=== PATIENT | male | born 1960 | race Caucasian/White ===

== ENCOUNTER 2016-07-27 18:29 | Inpatient (IN) | payer MEDICARE, OTHER ==
[~2016-07-27] VITALS: Ht 182.9 cm; Wt 105.0 kg
[~2016-07-27 18:29] MED LIST: ACET-2247 PO; BISA5TAB12 PO; DIAZ2 PO; DIVA250T45 PO; FENT1SPR SL; FLUT1AER IH; FOLI1TAB15 PO; HALO1 PO; INSU100V12 SQ; LISI-661 PO; METF500T4 PO; METH10 PO; MS100DRIP PO; MULT-29 PO; ONDA4 PO; PANT40TA PO; QUET200T PO; THIA100 PO; TRAZ150 PO; [UNRECOGNIZED DRUG - CODE] PO
[2016-07-27 19:05] LABS: BASOPHILS # (AUTO) 0.04 K/uL (0.00-0.20); BASOPHILS % (AUTO) 0.3 % (0.0-2.0); EOSINOPHILS # (AUTO) 0.08 K/uL (0.00-0.70); EOSINOPHILS % (AUTO) 0.75 % (1.0-6.0); HEMATOCRIT 44.3 % (41-53); HEMOGLOBIN 14.7 g/dL (13.5-17.5); LYMPHOCYTES # (AUTO) 4.1 K/uL (1.0-4.8); LYMPHOCYTES % (AUTO) 37.9 % (22.0-44.0); MEAN CORPUSCULAR HEMOGLOBIN 29.8 pg (26.0-34.0); MEAN CORPUSCULAR HGB CONC 33.3 G/dL (31.0-37.0); MEAN CORPUSCULAR VOLUME 89 fL (80-100); MONOCYTES # (AUTO) 0.5 K/uL (0.1-1.0); MONOCYTES % (AUTO) 4.4 % (2.0-9.0); NEUTROPHILS # (AUTO) 6.1 K/uL (1.8-7.7); NEUTROPHILS % (AUTO) 56.7 % (40.0-70.0); PLATELET COUNT (AUTO) 344 K/uL (150-450); RED BLOOD CELL COUNT(AUTO) 4.95 MIL/uL (4.50-5.90); RED CELL DISTRIBUTION WIDTH 14.3 % (11.5-14.5); WHITE BLOOD COUNT (AUTO) 10.8 K/uL (4.5-11.0)
[2016-07-27 19:07] LABS: ANION GAP 9 mmol/L (8-16); CALCIUM, TOTAL 8.6 mg/dL (8.8-10.5); CARBON DIOXIDE 27 mmol/L (22-29); CHLORIDE 104 mmol/L (98-107); GLOMERULAR FILTR. RATE CALC > 60 mL/min (>60); POTASSIUM 4.3 mmol/L (3.5-5.1); SODIUM SERUM 140 mmol/L (136-145); UREA NITROGEN, BLOOD 12 mg/dL (7-18)
[2016-07-27 19:13] LABS: ACETAMINOPHEN 41 mcg/mL (10-30); ALANINE AMINOTRANSFERASE 34 U/L (12-78); ALBUMIN 4.2 g/dL (3.4-5.0); ASPARTATE AMINOTRANSFERASE 36 U/L (15-37); BILIRUBIN,TOTAL 0.4 mg/dL (0.1-1.0); TOTAL PROTEIN, SERUM 7.3 g/dL (6.4-8.2)
[2016-07-27 19:17] LABS: GLUCOSE,POINT OF CARE 211 MG/DL (70-110)
[2016-07-27] MEDS ORDERED: MAGNESIUM SULFATE 2 GM, MVI, ADULT NO.1 WITH VIT K 10 ML, THIAMINE HCL 100 MG, FOLIC AC... IV ONE ×5 (19:30)
[2016-07-27] MEDS ORDERED: METOCLOPRAMIDE HCL 5 MG/ML 2 ML VIAL IVP ONE (19:30)
[2016-07-27 20:15] LABS: SALICYLATE < 2.8 mg/dL (2.8-20.0)
[2016-07-27] MEDS ORDERED: MAGNESIUM HYDROXIDE SUSPENSION 30 ML UDCUP PO PRN (21:30)
[2016-07-27] MEDS ORDERED: ACETAMINOPHEN 325 MG TABLET PO PRN (21:30)
[2016-07-27] MEDS ORDERED: SODIUM CHLORIDE 0.9% 1,000 ML IV ONE (21:45)
[2016-07-27] MEDS ORDERED: DEXTROSE 50%-WATER 25 GM/50 ML SYRINGE IVP PRN (21:45)
[2016-07-27] MEDS ORDERED: POTASSIUM CHL 10 MEQ/WATER 50 ML IV PRN (21:45)
[2016-07-27] MEDS ORDERED: POTASSIUM CHLORIDE 20 MEQ ER TABLET PO PRN (21:45)
[2016-07-27] MEDS ORDERED: MAGNESIUM SULFATE 4 GM/WATER 100 ML IV PRN (21:45)
[2016-07-27] MEDS ORDERED: MAGNESIUM SULFATE 2 GM in DEXTROSE 5%-WATER 50 ML IV PRN (21:45)
[2016-07-27] MEDS ORDERED: MAGNESIUM OXIDE 400 MG TABLET PO PRN (21:45)
[2016-07-27 23:30] VITALS: BP 140/79
[2016-07-27] MEDS: MORPHINE SULFATE 2 MG/ML SYRINGE IVP PRN (23:43)
[2016-07-28] MEDS: HEPARIN SODIUM,PORCINE 5,000 UNITS/ML VIAL SQ SCH ×4 (00:08→23:04)
[2016-07-28] MEDS ORDERED: PNEUMOCOCCAL VACCINE POLYVALENT 0.5 ML VIAL [PPSV23] IM ONE (02:00)
[2016-07-28] MEDS: LORazepam 2 MG/ML VIAL IVP PRN ×2 (02:48→17:22)
[2016-07-28 04:00] VITALS: BP 149/92
[2016-07-28 06:36] LABS: GLUCOSE COMMENT 1 Received Meds; GLUCOSE,POINT OF CARE 200 MG/DL (70-110)
[2016-07-28] MEDS: INSULIN ASPART 100 UNITS/ML SQ PRN ×4 (06:36→20:03)
[2016-07-28 06:48] LABS: GLUCOSE COMMENT 1 Received Meds; GLUCOSE,POINT OF CARE 205 MG/DL (70-110)
[2016-07-28 07:25] LABS: BASOPHILS % (AUTO) 0.4 % (0.0-2.0); EOSINOPHILS % (AUTO) 0.8 % (1.0-6.0); HEMATOCRIT 44.2 % (41-53); HEMOGLOBIN 14.3 g/dL (13.5-17.5); LYMPHOCYTES # (AUTO) 3.1 K/uL (1.0-4.8); LYMPHOCYTES % (AUTO) 28.5 % (22.0-44.0); MEAN CORPUSCULAR HGB CONC 32.3 G/dL (31.0-37.0); MEAN CORPUSCULAR VOLUME 90 fL (80-100); MONOCYTES # (AUTO) 0.4 K/uL (0.1-1.0); NEUTROPHILS # (AUTO) 7.3 K/uL (1.8-7.7); NEUTROPHILS % (AUTO) 66.3 % (40.0-70.0); PLATELET COUNT (AUTO) 372 K/uL (150-450); RED BLOOD CELL COUNT(AUTO) 4.93 MIL/uL (4.50-5.90); RED CELL DISTRIBUTION WIDTH 14.7 % (11.5-14.5)
[2016-07-28 07:32] VITALS: BP 163/99
[2016-07-28] MEDS: ONDANSETRON HCL 4 MG/2 ML VIAL IVP PRN ×2 (07:34→14:16)
[2016-07-28] MEDS: MORPHINE SULFATE 2 MG/ML SYRINGE IVP PRN ×2 (07:47→14:11)
[2016-07-28 08:00] LABS: ALANINE AMINOTRANSFERASE 34 U/L (12-78); ALBUMIN 4.1 g/dL (3.4-5.0); ANION GAP 16 mmol/L (8-16); ASPARTATE AMINOTRANSFERASE 27 U/L (15-37); BILIRUBIN,TOTAL 0.5 mg/dL (0.1-1.0); CALCIUM, TOTAL 8.8 mg/dL (8.8-10.5); CARBON DIOXIDE 22 mmol/L (22-29); CHLORIDE 102 mmol/L (98-107); CREATININE 1.17 mg/dL (0.60-1.30); GLOMERULAR FILTR. RATE CALC > 60 mL/min (>60); POTASSIUM 3.9 mmol/L (3.5-5.1); SODIUM SERUM 140 mmol/L (136-145); TOTAL PROTEIN, SERUM 7.3 g/dL (6.4-8.2); UREA NITROGEN, BLOOD 17 mg/dL (7-18)
[2016-07-28] MEDS: PANTOPRAZOLE SODIUM 40 MG DR TABLET PO SCH (08:14)
[2016-07-28] MEDS: DOCUSATE SODIUM 100 MG CAPSULE PO SCH ×2 (08:14→19:56)
[2016-07-28 08:20] LABS: ACETAMINOPHEN 2 mcg/mL (10-30)
[2016-07-28] MEDS: LISINOPRIL 10 MG TABLET PO SCH (09:23)
[2016-07-28] MEDS: NICOTINE 21 MG/24 HOUR PATCH TD SCH (10:23)
[2016-07-28 12:07] LABS: GLUCOSE COMMENT 1 Received Meds; GLUCOSE,POINT OF CARE 190 MG/DL (70-110)
[2016-07-28 13:00] VITALS: BP 158/96
[2016-07-28 15:32] VITALS: BP 161/102
[2016-07-28] MEDS ORDERED: DENTURE ADHESIVE 68 GM CREAM DT PRN (16:30)
[2016-07-28] MEDS: OxyCODONE HCL/ACETAMINOPHEN 5-325 MG TABLET PO PRN (17:16)
[2016-07-28 17:27] LABS: GLUCOSE COMMENT 1 Received Meds; GLUCOSE,POINT OF CARE 197 MG/DL (70-110)
[2016-07-28] MEDS ORDERED: QUET300T2 PO (17:45)
[2016-07-28] MEDS ORDERED: FENT75PAT TD (17:45)
[2016-07-28] MEDS ORDERED: MORP5L PO (17:45)
[2016-07-28 19:29] VITALS: BP 136/86
[2016-07-28] MEDS: QUEtiapine FUMARATE 200 MG TABLET PO SCH (19:55)
[2016-07-28 20:06] LABS: GLUCOSE,POINT OF CARE 184 MG/DL (70-110)
[2016-07-28] MEDS ORDERED: TraZODone HCL 100 MG TABLET PO SCH (21:00)
[2016-07-28] MEDS ORDERED: MIRTAZAPINE 15 MG TABLET PO SCH (21:00)
[2016-07-28 23:05] VITALS: BP 123/77
[2016-07-29] MEDS: OxyCODONE HCL/ACETAMINOPHEN 5-325 MG TABLET PO PRN ×2 (02:53→03:03)
[2016-07-29] MEDS: MORPHINE SULFATE 2 MG/ML SYRINGE IVP PRN ×2 (03:00→08:00)
[2016-07-29 05:26] VITALS: BP 127/92
[2016-07-29] MEDS: LORazepam 2 MG/ML VIAL IVP PRN ×2 (06:00→09:11)
[2016-07-29] MEDS: INSULIN ASPART 100 UNITS/ML SQ PRN ×2 (06:00→11:32)
[2016-07-29 06:12] LABS: GLUCOSE,POINT OF CARE 267 MG/DL (70-110)
[2016-07-29] MEDS: HEPARIN SODIUM,PORCINE 5,000 UNITS/ML VIAL SQ SCH (07:51)
[2016-07-29] MEDS: LISINOPRIL 10 MG TABLET PO SCH (07:51)
[2016-07-29] MEDS: NICOTINE 21 MG/24 HOUR PATCH TD SCH (07:51)
[2016-07-29] MEDS: PANTOPRAZOLE SODIUM 40 MG DR TABLET PO SCH (07:51)
[2016-07-29] MEDS: DOCUSATE SODIUM 100 MG CAPSULE PO SCH (07:51)
[2016-07-29] MEDS: QUEtiapine FUMARATE 200 MG TABLET PO SCH (07:51)
[2016-07-29 08:00] VITALS: BP 132/94
[2016-07-29 11:37] LABS: GLUCOSE COMMENT 1 Received Meds; GLUCOSE,POINT OF CARE 295 MG/DL (70-110)
== END 2016-07-29 12:00 | disposition home or self-care (01) | DRG 918 ==
LOC: EEVIPCON 18:31 → EMS 18:31 → 6N 22:21
PROVIDERS: ADMIT Internal Medicine; ATTEND Internal Medicine
DX: T50.901A Poisoning by unspecified drugs, medicaments and biological substances, accidental (unintentional), initial encounter (principal); K86.1 Other chronic pancreatitis; F11.20 Opioid dependence, uncomplicated; I10 Essential (primary) hypertension; E11.9 Type 2 diabetes mellitus without complications; G89.29 Other chronic pain; F31.9 Bipolar disorder, unspecified; F43.10 Post-traumatic stress disorder, unspecified; M19.90 Unspecified osteoarthritis, unspecified site; F17.210 Nicotine dependence, cigarettes, uncomplicated; F10.20 Alcohol dependence, uncomplicated; Y90.8 Blood alcohol level of 240 mg/100 ml or more; X58.XXXA Exposure to other specified factors, initial encounter; Z53.29 Procedure and treatment not carried out because of patient's decision for other reasons; J44.9 Chronic obstructive pulmonary disease, unspecified; E11.65 Type 2 diabetes mellitus with hyperglycemia; Z91.19 Patient's noncompliance with other medical treatment and regimen; Y92.89 Other specified places as the place of occurrence of the external cause; Y93.89 Activity, other specified; Y99.8 Other external cause status; Z79.4 Long term (current) use of insulin; Z88.0 Allergy status to penicillin; Z83.3 Family history of diabetes mellitus; Z82.49 Family history of ischemic heart disease and other diseases of the circulatory system; Z79.01 Long term (current) use of anticoagulants
CPT/HCPCS: 82962; 83735; 87081; 96365; 96366; 96375; 99285; G0480; G0481; J1644; J2060; J2270; J2405; J2765; J3411; J3475; J3490; J7030; J7060

== ENCOUNTER 2016-08-12 18:48 | Inpatient (IN) | payer MEDICARE, MEDICAID ==
[~2016-08-12] VITALS: Ht 182.9 cm; Wt 107.8 kg
[~2016-08-12 18:48] MED LIST changes: -BISA5TAB12 PO; -DIVA250T45 PO; -FENT1SPR SL; -FOLI1TAB15 PO; -HALO1 PO; -INSU100V12 SQ; -METH10 PO; -MS100DRIP PO; -QUET200T PO; +QUET300T2 PO; -[UNRECOGNIZED DRUG - CODE] PO
[2016-08-12 19:27] LABS: GLUCOSE,POINT OF CARE 156 MG/DL (70-110)
[2016-08-12 19:40] LABS: BASOPHILS % (AUTO) 0.4 % (0.0-2.0); HEMATOCRIT 38.8 % (41-53); HEMOGLOBIN 13.4 g/dL (13.5-17.5); LYMPHOCYTES # (AUTO) 3.3 K/uL (1.0-4.8); LYMPHOCYTES % (AUTO) 30.8 % (22.0-44.0); MEAN CORPUSCULAR HEMOGLOBIN 30.4 pg (26.0-34.0); MEAN CORPUSCULAR HGB CONC 34.6 G/dL (31.0-37.0); MEAN CORPUSCULAR VOLUME 88 fL (80-100); MONOCYTES # (AUTO) 0.8 K/uL (0.1-1.0); MONOCYTES % (AUTO) 7.8 % (2.0-9.0); NEUTROPHILS # (AUTO) 6.3 K/uL (1.8-7.7); PLATELET COUNT (AUTO) 277 K/uL (150-450); RED BLOOD CELL COUNT(AUTO) 4.41 MIL/uL (4.50-5.90); RED CELL DISTRIBUTION WIDTH 15.1 % (11.5-14.5); WHITE BLOOD COUNT (AUTO) 10.6 K/uL (4.5-11.0)
[2016-08-12] MEDS ORDERED: LORA1TAB3 PO (19:43)
[2016-08-12] MEDS ORDERED: OMEP20 PO (19:43)
[2016-08-12] MEDS ORDERED: MIRT30 PO (19:43)
[2016-08-12] MEDS ORDERED: HYDR-3971 PO (19:43)
[2016-08-12] MEDS ORDERED: ASPI81 PO (19:43)
[2016-08-12] MEDS ORDERED: HYDR25TA PO (19:43)
[2016-08-12] MEDS ORDERED: INSU100C14 SQ (19:43)
[2016-08-12] MEDS ORDERED: FENT-76 TD (19:43)
[2016-08-12 19:53] LABS: ANION GAP 8 mmol/L (8-16); CALCIUM, TOTAL 9.4 mg/dL (8.8-10.5); CARBON DIOXIDE 28 mmol/L (22-29); CHLORIDE 99 mmol/L (98-107); CREATININE 1.31 mg/dL (0.60-1.30); GLOMERULAR FILTR. RATE CALC 57 mL/min (>60); POTASSIUM 4.4 mmol/L (3.5-5.1); SODIUM SERUM 135 mmol/L (136-145); UREA NITROGEN, BLOOD 21 mg/dL (7-18)
[2016-08-12 19:58] LABS: ALANINE AMINOTRANSFERASE 21 U/L (12-78); ALBUMIN 3.8 g/dL (3.4-5.0); ASPARTATE AMINOTRANSFERASE 10 U/L (15-37); BILIRUBIN,TOTAL 0.2 mg/dL (0.1-1.0); TOTAL PROTEIN, SERUM 7.4 g/dL (6.4-8.2)
[2016-08-12 22:32] LABS: VALPROIC ACID < 3 mcg/mL (50-100)
[2016-08-12] MEDS ORDERED: ZOLPIDEM TARTRATE 10 MG TABLET PO PRN (23:30)
[2016-08-12] MEDS ORDERED: OLANZapine 5 MG RAPDIS TABLET PO PRN (23:30)
[2016-08-12] MEDS ORDERED: LORazepam 2 MG TABLET PO PRN (23:30)
[2016-08-13 00:45] VITALS: BP 105/67
[2016-08-13 06:07] LABS: CHOL/HDL RATIO 5.1 (4.2-7.3)
[2016-08-13] MEDS ORDERED: DEXTROSE 50%-WATER 25 GM/50 ML SYRINGE IVP PRN (07:15)
[2016-08-13] MEDS ORDERED: ACETAMINOPHEN 325 MG TABLET PO PRN (09:00)
[2016-08-13] MEDS ORDERED: MAGNESIUM HYDROXIDE SUSPENSION 30 ML UDCUP PO PRN (09:00)
[2016-08-13] MEDS ORDERED: CloNIDine HCL 0.1 MG TABLET PO PRN (09:00)
[2016-08-13] MEDS ORDERED: MAG HYDROX/AL HYDROX/SIMETH ES 30 ML SUSPENSION UDCUP PO PRN (09:00)
[2016-08-13] MEDS ORDERED: BACITRACIN 28.4 GM OINTMENT TP PRN (09:00)
[2016-08-13] MEDS ORDERED: ONDANSETRON HCL 4 MG TABLET PO PRN (09:00)
[2016-08-13] MEDS ORDERED: PETROLATUM,WHITE 71 GM JELLY TP PRN (09:00)
[2016-08-13] MEDS ORDERED: HYDROCODONE/ACETAMINOPHEN 10-325 MG TABLET PO PRN (09:00)
[2016-08-13] MEDS ORDERED: LOPERAMIDE HCL 2 MG CAPSULE PO PRN (09:00)
[2016-08-13] MEDS ORDERED: IBUPROFEN 600 MG TABLET PO PRN (09:00)
[2016-08-13] MEDS ORDERED: ALBUTEROL SULFATE HFA 90 MCG/PUFF 8 GM INHALER IH PRN (09:00)
[2016-08-13] MEDS ORDERED: BENZOCAINE/MENTHOL LOZENGE MM PRN (09:00)
[2016-08-13] MEDS: DOCUSATE SODIUM 100 MG CAPSULE PO SCH (09:55)
[2016-08-13] MEDS: HYDROCHLOROTHIAZIDE 25 MG TABLET PO SCH (09:55)
[2016-08-13] MEDS: LISINOPRIL 10 MG TABLET PO SCH (09:55)
[2016-08-13] MEDS: OMEPRAZOLE 20 MG CAPSULE PO SCH (09:55)
[2016-08-13] MEDS: NICOTINE 21 MG/24 HOUR PATCH TD SCH (09:55)
[2016-08-13] MEDS: ASPIRIN 81 MG CHEWABLE TABLET PO SCH (09:55)
[2016-08-13] MEDS ORDERED: PROMETHAZINE HCL 25 MG TABLET PO PRN (10:15)
[2016-08-13] MEDS ORDERED: GuaiFENesin/D-METHORPHAN [SUGAR-FREE] 200-20MG/10 ML SYRUP UDCUP PO PRN (10:15)
[2016-08-13] MEDS ORDERED: HydrOXYzine PAMOATE 50 MG CAPSULE PO PRN (10:15)
[2016-08-13] MEDS ORDERED: FENTANYL TD SCH (10:45)
[2016-08-13] MEDS ORDERED: LORazepam 2 MG TABLET PO ONE (12:15)
[2016-08-13 12:47] LABS: GLUCOSE,POINT OF CARE 108 MG/DL (70-110)
[2016-08-13] MEDS: QUEtiapine FUMARATE 100 MG TABLET PO PRN (15:09)
[2016-08-13 17:55] VITALS: BP 128/69
[2016-08-13] MEDS: THIAMINE HCL 100 MG TABLET PO SCH (18:30)
[2016-08-13] MEDS: FLUTICASONE/VILANTEROL 100-25 MCG/INH INHALER [14] IH SCH (18:30)
[2016-08-13] MEDS: ACAMPROSATE CALCIUM 333 MG DR TABLET PO SCH (18:30)
[2016-08-13] MEDS: MetFORMIN HCL 500 MG TABLET PO SCH (18:30)
[2016-08-13] MEDS: QUEtiapine FUMARATE 200 MG TABLET PO SCH (18:30)
[2016-08-13] MEDS: LORazepam 2 MG TABLET PO PRN (20:30)
[2016-08-13] MEDS: TraZODone HCL 150 MG TABLET PO SCH (20:32)
[2016-08-13] MEDS: MIRTAZAPINE 15 MG TABLET PO SCH (20:32)
[2016-08-13] MEDS ORDERED: QUEtiapine FUMARATE 200 MG TABLET PO SCH (21:00)
[2016-08-14 05:56] VITALS: BP 104/61
[2016-08-14] MEDS: MetFORMIN HCL 500 MG TABLET PO SCH ×2 (07:00→17:17)
[2016-08-14] MEDS: INSULIN ASPART 100 UNITS/ML SQ PRN (07:01)
[2016-08-14] MEDS: FLUTICASONE/VILANTEROL 100-25 MCG/INH INHALER [14] IH SCH (08:02)
[2016-08-14] MEDS: NICOTINE 21 MG/24 HOUR PATCH TD SCH (08:02)
[2016-08-14] MEDS: FOLIC ACID 1 MG TABLET PO SCH (08:03)
[2016-08-14] MEDS: OMEPRAZOLE 20 MG CAPSULE PO SCH (08:03)
[2016-08-14] MEDS: QUEtiapine FUMARATE 100 MG TABLET PO PRN (08:03)
[2016-08-14] MEDS: DOCUSATE SODIUM 100 MG CAPSULE PO SCH (08:03)
[2016-08-14] MEDS: ASPIRIN 81 MG CHEWABLE TABLET PO SCH (08:03)
[2016-08-14] MEDS: ACAMPROSATE CALCIUM 333 MG DR TABLET PO SCH ×3 (08:03→17:17)
[2016-08-14] MEDS: LORazepam 2 MG TABLET PO PRN ×3 (08:04→20:23)
[2016-08-14] MEDS: FISH OIL/OMEGA-3 FATTY ACIDS 500 MG CAPSULE PO SCH (08:04)
[2016-08-14] MEDS: MULTIVITAMINS WITH MINERALS, THERAPEUTIC TABLET PO SCH (08:04)
[2016-08-14] MEDS: LISINOPRIL 10 MG TABLET PO SCH (08:05)
[2016-08-14] MEDS: HYDROCHLOROTHIAZIDE 25 MG TABLET PO SCH (08:05)
[2016-08-14] MEDS: THIAMINE HCL 100 MG TABLET PO SCH ×2 (08:06→17:17)
[2016-08-14] MEDS: QUEtiapine FUMARATE 200 MG TABLET PO SCH ×2 (08:06→17:17)
[2016-08-14] MEDS: NON FORMULARY MEDICATION - MISC UNIT MISC SCH (09:00)
[2016-08-14 10:55] LABS: GLUCOSE,POINT OF CARE 78 MG/DL (70-110)
[2016-08-14 11:01] LABS: GLUCOSE,POINT OF CARE 100 MG/DL (70-110)
[2016-08-14 12:12] LABS: GLUCOSE,POINT OF CARE 158 MG/DL (70-110)
[2016-08-14 12:42] VITALS: BP 129/78
[2016-08-14 13:12] LABS: GLUCOSE,POINT OF CARE 210 MG/DL (70-110)
[2016-08-14] MEDS: GABAPENTIN 400 MG CAPSULE PO SCH ×2 (17:18→20:23)
[2016-08-14 17:22] LABS: GLUCOSE,POINT OF CARE 211 MG/DL (70-110)
[2016-08-14 18:21] VITALS: BP 125/75
[2016-08-14] MEDS: MIRTAZAPINE 15 MG TABLET PO SCH (20:24)
[2016-08-14] MEDS: TraZODone HCL 150 MG TABLET PO SCH (20:24)
[2016-08-14 20:27] LABS: GLUCOSE,POINT OF CARE 214 MG/DL (70-110)
[2016-08-15 06:17] LABS: GLUCOSE COMMENT 1 Received Meds; GLUCOSE,POINT OF CARE 141 MG/DL (70-110)
[2016-08-15] MEDS: INSULIN ASPART 100 UNITS/ML SQ PRN (06:49)
[2016-08-15] MEDS: MetFORMIN HCL 500 MG TABLET PO SCH ×2 (06:56→17:30)
[2016-08-15] MEDS: LORazepam 2 MG TABLET PO PRN ×3 (08:09→22:02)
[2016-08-15] MEDS: FLUTICASONE/VILANTEROL 100-25 MCG/INH INHALER [14] IH SCH (08:09)
[2016-08-15] MEDS: DULoxetine HCL 30 MG CAPSULE PO SCH (08:10)
[2016-08-15] MEDS: HYDROCHLOROTHIAZIDE 25 MG TABLET PO SCH (08:10)
[2016-08-15] MEDS: THIAMINE HCL 100 MG TABLET PO SCH ×2 (08:10→17:30)
[2016-08-15] MEDS: GABAPENTIN 400 MG CAPSULE PO SCH ×2 (08:10→13:46)
[2016-08-15] MEDS: OMEPRAZOLE 20 MG CAPSULE PO SCH (08:11)
[2016-08-15] MEDS: ASPIRIN 81 MG CHEWABLE TABLET PO SCH (08:11)
[2016-08-15] MEDS: QUEtiapine FUMARATE 200 MG TABLET PO SCH ×2 (08:11→17:29)
[2016-08-15] MEDS: FOLIC ACID 1 MG TABLET PO SCH (08:11)
[2016-08-15] MEDS: ACAMPROSATE CALCIUM 333 MG DR TABLET PO SCH ×3 (08:11→17:29)
[2016-08-15] MEDS: FISH OIL/OMEGA-3 FATTY ACIDS 500 MG CAPSULE PO SCH (08:11)
[2016-08-15] MEDS: MULTIVITAMINS WITH MINERALS, THERAPEUTIC TABLET PO SCH (08:11)
[2016-08-15] MEDS: LISINOPRIL 10 MG TABLET PO SCH (08:12)
[2016-08-15] MEDS: DOCUSATE SODIUM 100 MG CAPSULE PO SCH (08:34)
[2016-08-15] MEDS: NICOTINE 21 MG/24 HOUR PATCH TD SCH (08:35)
[2016-08-15] MEDS: NON FORMULARY MEDICATION - MISC UNIT MISC SCH (09:00)
[2016-08-15 11:33] LABS: GLUCOSE,POINT OF CARE 143 MG/DL (70-110)
[2016-08-15] MEDS ORDERED: QUET200T PO (15:54)
[2016-08-15] MEDS ORDERED: FENT75PAT TD (15:54)
[2016-08-15 17:17] VITALS: BP 122/78
[2016-08-15 17:32] LABS: GLUCOSE,POINT OF CARE 176 MG/DL (70-110)
[2016-08-15] MEDS: GABAPENTIN 300 MG CAPSULE PO SCH ×2 (17:32→21:54)
[2016-08-15 21:52] LABS: GLUCOSE,POINT OF CARE 131 MG/DL (70-110)
[2016-08-15] MEDS: MIRTAZAPINE 15 MG TABLET PO SCH (21:54)
[2016-08-15] MEDS: TraZODone HCL 150 MG TABLET PO SCH (21:54)
[2016-08-16 05:42] LABS: GLUCOSE,POINT OF CARE 129 MG/DL (70-110)
[2016-08-16] MEDS: INSULIN ASPART 100 UNITS/ML SQ PRN ×2 (06:58→21:35)
[2016-08-16] MEDS: MetFORMIN HCL 500 MG TABLET PO SCH ×2 (07:02→16:23)
[2016-08-16 08:10] VITALS: BP 140/80
[2016-08-16] MEDS: OMEPRAZOLE 20 MG CAPSULE PO SCH (08:28)
[2016-08-16] MEDS: FLUTICASONE/VILANTEROL 100-25 MCG/INH INHALER [14] IH SCH (08:28)
[2016-08-16] MEDS: MULTIVITAMINS WITH MINERALS, THERAPEUTIC TABLET PO SCH (08:28)
[2016-08-16] MEDS: LISINOPRIL 10 MG TABLET PO SCH (08:28)
[2016-08-16] MEDS: QUEtiapine FUMARATE 200 MG TABLET PO SCH ×2 (08:28→16:23)
[2016-08-16] MEDS: GABAPENTIN 300 MG CAPSULE PO SCH ×4 (08:29→21:34)
[2016-08-16] MEDS: DULoxetine HCL 30 MG CAPSULE PO SCH (08:29)
[2016-08-16] MEDS: ASPIRIN 81 MG CHEWABLE TABLET PO SCH (08:29)
[2016-08-16] MEDS: HYDROCHLOROTHIAZIDE 25 MG TABLET PO SCH (08:30)
[2016-08-16] MEDS: FISH OIL/OMEGA-3 FATTY ACIDS 500 MG CAPSULE PO SCH (08:30)
[2016-08-16] MEDS: FOLIC ACID 1 MG TABLET PO SCH (08:30)
[2016-08-16] MEDS: THIAMINE HCL 100 MG TABLET PO SCH ×2 (08:30→16:23)
[2016-08-16] MEDS: ACAMPROSATE CALCIUM 333 MG DR TABLET PO SCH ×3 (08:31→16:24)
[2016-08-16] MEDS: LORazepam 2 MG TABLET PO PRN ×3 (08:32→21:35)
[2016-08-16] MEDS: NICOTINE 21 MG/24 HOUR PATCH TD SCH (08:36)
[2016-08-16] MEDS: DOCUSATE SODIUM 100 MG CAPSULE PO SCH (08:37)
[2016-08-16] MEDS: NON FORMULARY MEDICATION - MISC UNIT MISC SCH (09:00)
[2016-08-16 11:52] LABS: GLUCOSE,POINT OF CARE 185 MG/DL (70-110)
[2016-08-16 15:45] VITALS: BP 94/54
[2016-08-16 16:38] LABS: GLUCOSE COMMENT 1 Received Meds; GLUCOSE,POINT OF CARE 128 MG/DL (70-110)
[2016-08-16 17:12] VITALS: BP 94/54
[2016-08-16 17:21] VITALS: BP 102/62
[2016-08-16] MEDS: TraZODone HCL 150 MG TABLET PO SCH (21:34)
[2016-08-16] MEDS: MIRTAZAPINE 15 MG TABLET PO SCH (21:34)
[2016-08-16 21:46] LABS: GLUCOSE COMMENT 1 FASTING; GLUCOSE,POINT OF CARE 93 MG/DL (70-110)
[2016-08-17] MEDS: LORazepam 2 MG TABLET PO PRN ×4 (04:02→21:16)
[2016-08-17 06:28] LABS: GLUCOSE COMMENT 1 Received Meds; GLUCOSE,POINT OF CARE 153 MG/DL (70-110)
[2016-08-17] MEDS: MetFORMIN HCL 500 MG TABLET PO SCH ×2 (07:03→17:01)
[2016-08-17] MEDS: INSULIN ASPART 100 UNITS/ML SQ PRN (07:06)
[2016-08-17] MEDS: ACAMPROSATE CALCIUM 333 MG DR TABLET PO SCH ×3 (08:47→17:01)
[2016-08-17] MEDS: LISINOPRIL 10 MG TABLET PO SCH (08:47)
[2016-08-17] MEDS: OMEPRAZOLE 20 MG CAPSULE PO SCH (08:47)
[2016-08-17] MEDS: GABAPENTIN 300 MG CAPSULE PO SCH ×4 (08:47→20:55)
[2016-08-17] MEDS: ASPIRIN 81 MG CHEWABLE TABLET PO SCH (08:48)
[2016-08-17] MEDS: DULoxetine HCL 30 MG CAPSULE PO SCH (08:48)
[2016-08-17] MEDS: MULTIVITAMINS WITH MINERALS, THERAPEUTIC TABLET PO SCH (08:48)
[2016-08-17] MEDS: FOLIC ACID 1 MG TABLET PO SCH (08:48)
[2016-08-17] MEDS: THIAMINE HCL 100 MG TABLET PO SCH ×2 (08:48→17:01)
[2016-08-17] MEDS: QUEtiapine FUMARATE 200 MG TABLET PO SCH ×2 (08:48→17:01)
[2016-08-17] MEDS: HYDROCHLOROTHIAZIDE 25 MG TABLET PO SCH (08:48)
[2016-08-17] MEDS: FLUTICASONE/VILANTEROL 100-25 MCG/INH INHALER [14] IH SCH (08:49)
[2016-08-17] MEDS: FISH OIL/OMEGA-3 FATTY ACIDS 500 MG CAPSULE PO SCH (08:49)
[2016-08-17] MEDS: DOCUSATE SODIUM 100 MG CAPSULE PO SCH (09:00)
[2016-08-17] MEDS: NON FORMULARY MEDICATION - MISC UNIT MISC SCH (09:00)
[2016-08-17] MEDS: NICOTINE 21 MG/24 HOUR PATCH TD SCH (09:06)
[2016-08-17 12:07] LABS: GLUCOSE,POINT OF CARE 182 MG/DL (70-110)
[2016-08-17 14:41] VITALS: BP 147/94
[2016-08-17 17:12] LABS: GLUCOSE COMMENT 1 Received Meds; GLUCOSE,POINT OF CARE 148 MG/DL (70-110)
[2016-08-17] MEDS: MIRTAZAPINE 15 MG TABLET PO SCH (20:55)
[2016-08-17] MEDS: TraZODone HCL 150 MG TABLET PO SCH (20:55)
[2016-08-17 21:02] LABS: GLUCOSE COMMENT 1 FASTING; GLUCOSE,POINT OF CARE 129 MG/DL (70-110)
[2016-08-17 21:48] VITALS: BP 137/84
[2016-08-18 05:27] LABS: GLUCOSE,POINT OF CARE 119 MG/DL (70-110)
[2016-08-18] MEDS: MetFORMIN HCL 500 MG TABLET PO SCH (06:37)
[2016-08-18 08:00] VITALS: BP 134/94
[2016-08-18] MEDS: FLUTICASONE/VILANTEROL 100-25 MCG/INH INHALER [14] IH SCH (08:48)
[2016-08-18] MEDS: FISH OIL/OMEGA-3 FATTY ACIDS 500 MG CAPSULE PO SCH (08:48)
[2016-08-18] MEDS: ACAMPROSATE CALCIUM 333 MG DR TABLET PO SCH ×2 (08:48→14:16)
[2016-08-18] MEDS: OMEPRAZOLE 20 MG CAPSULE PO SCH (08:53)
[2016-08-18] MEDS: QUEtiapine FUMARATE 200 MG TABLET PO SCH (08:53)
[2016-08-18] MEDS: ASPIRIN 81 MG CHEWABLE TABLET PO SCH (08:53)
[2016-08-18] MEDS: FOLIC ACID 1 MG TABLET PO SCH (08:53)
[2016-08-18] MEDS: GABAPENTIN 300 MG CAPSULE PO SCH ×2 (08:53→14:16)
[2016-08-18] MEDS: LORazepam 2 MG TABLET PO PRN (08:53)
[2016-08-18] MEDS: THIAMINE HCL 100 MG TABLET PO SCH (08:53)
[2016-08-18] MEDS: DOCUSATE SODIUM 100 MG CAPSULE PO SCH (08:53)
[2016-08-18] MEDS: HYDROCHLOROTHIAZIDE 25 MG TABLET PO SCH (08:54)
[2016-08-18] MEDS: MULTIVITAMINS WITH MINERALS, THERAPEUTIC TABLET PO SCH (08:54)
[2016-08-18] MEDS: DULoxetine HCL 30 MG CAPSULE PO SCH (08:54)
[2016-08-18] MEDS: NICOTINE 21 MG/24 HOUR PATCH TD SCH (08:55)
[2016-08-18] MEDS: LISINOPRIL 10 MG TABLET PO SCH (08:55)
[2016-08-18] MEDS: NON FORMULARY MEDICATION - MISC UNIT MISC SCH (09:00)
[2016-08-18 11:57] LABS: GLUCOSE,POINT OF CARE 147 MG/DL (70-110)
[2016-08-18] MEDS ORDERED: ACAM333T7 PO (12:41)
[2016-08-18] MEDS ORDERED: DULO30CA2 PO (12:44)
[2016-08-18] MEDS ORDERED: GABA-531 PO (12:45)
[2016-08-18] MEDS ORDERED: QUET200T PO (12:49)
[2016-08-18] MEDS ORDERED: DSS100 PO (12:50)
[2016-08-18] MEDS ORDERED: OMEG-12 PO (12:52)
== END 2016-08-18 15:20 | disposition home or self-care (01) | DRG 885 ==
LOC: EMS 18:50 → AHU 22:30 → UNDOADMIN 22:30 → AHU 08-13 00:30 → 3EI 08-13 17:00
PROVIDERS: ADMIT Psychiatry & Neurology Psychiatry; ATTEND Psychiatry & Neurology Psychiatry
DX: F31.30 Bipolar disorder, current episode depressed, mild or moderate severity, unspecified (principal); F11.20 Opioid dependence, uncomplicated; K86.1 Other chronic pancreatitis; R45.851 Suicidal ideations; F25.9 Schizoaffective disorder, unspecified; F17.210 Nicotine dependence, cigarettes, uncomplicated; E66.9 Obesity, unspecified; E11.65 Type 2 diabetes mellitus with hyperglycemia; I10 Essential (primary) hypertension; J44.9 Chronic obstructive pulmonary disease, unspecified; E05.00 Thyrotoxicosis with diffuse goiter without thyrotoxic crisis or storm; G89.4 Chronic pain syndrome; Z96.41 Presence of insulin pump (external) (internal); G47.00 Insomnia, unspecified; F43.10 Post-traumatic stress disorder, unspecified; K21.9 Gastro-esophageal reflux disease without esophagitis; M19.90 Unspecified osteoarthritis, unspecified site; Z79.4 Long term (current) use of insulin; Z79.82 Long term (current) use of aspirin; Z79.899 Other long term (current) drug therapy; Z88.0 Allergy status to penicillin; Z91.410 Personal history of adult physical and sexual abuse; Z98.52 Vasectomy status; Z91.19 Patient's noncompliance with other medical treatment and regimen; Z79.891 Long term (current) use of opiate analgesic; Z79.51 Long term (current) use of inhaled steroids; Z71.6 Tobacco abuse counseling; Z71.51 Drug abuse counseling and surveillance of drug abuser; Z98.890 Other specified postprocedural states; Z81.8 Family history of other mental and behavioral disorders; Z82.49 Family history of ischemic heart disease and other diseases of the circulatory system; Z83.3 Family history of diabetes mellitus; Z68.32 Body mass index [BMI] 32.0-32.9, adult
CPT/HCPCS: 82962; 87081; 99285; G0480